=== PATIENT | female | born 1960 | race Caucasian/White ===

== ENCOUNTER → 2017-02-23 17:23 | Outpatient (CLI) | payer MEDICAID | END | disposition home or self-care (01) | LOC: D.MAMMO 16:00 | DX: Z12.31 Encounter for screening mammogram for malignant neoplasm of breast (principal) ==

== ENCOUNTER → 2018-08-14 07:28 | Outpatient (CLI) | payer MEDICAID | END | disposition home or self-care (01) | LOC: D.NM 07:28 | DX: K80.20 Calculus of gallbladder without cholecystitis without obstruction (principal) ==

== ENCOUNTER 2018-10-02 09:10 | Day surgery (SDC) | payer MEDICAID ==
[2018-10-01 15:03] LABS: BASOPHILS 0.4 % (0-2); EOSINOPHILS 1.7 % (0-7); HEMATOCRIT 38.9 % (36.0-48.0); HEMOGLOBIN 12.4 g/dL (12-16); IMMATURE GRANULOCYTES 0.4 % (0-5); LYMPHOCYTES 27.7 % (15-50); MCH 28.1 pg (26.0-34.0); MCHC 31.9 g/dL (31.0-37.0); MCV 88.2 fL (80.0-100.0); MEAN PLATELET VOLUME 9.1 fL (7.4-10.4); MONOCYTES 5.5 % (2-11); NEUTROPHILS 64.3 % (40-80); PLATELET COUNT 227 10x3/uL (130-400); RBC 4.41 10x6/uL (4.00-5.40); RDW 14.5 % (11.5-14.5); WBC 11.4 10x3/uL (4.8-10.8)
[2018-10-01 15:22] LABS: CALC OSMOLALITY 279 mosm/kg (275-300); CALCIUM 8.8 mg/dL (8.5-10.1); CHLORIDE - SERUM 100 mmol/L (98-107); CREATININE - SERUM 0.8 mg/dL (0.6-1.3); SODIUM 139 mmol/L (136-145); UREA NITROGEN 14 mg/dL (7-18); eGFR NON AFRICAN AMERICAN 78 mL/min (90-120)
[2018-10-01 15:23] LABS: GLUCOSE 122 mg/dL (74-106)
[~2018-10-02] VITALS: Ht 170.2 cm; Wt 136.5 kg
--- NOTE | ~2018-10-02 | OP ---
PATIENT NAME: CAIO BURNS MEDICAL RECORD: [id number] :64 LOCATION:D.OPS ADMISSION DATE: SURGEON: EDDIE TREJO MD DATE OF OPERATION: 10/02/2018 PREOPERATIVE DIAGNOSES: 1. Biliary dyskinesia. 2. Hypertension. 3. Diabetes mellitus. 4. Morbid obesity with a BMI of 47. POSTOPERATIVE DIAGNOSES: 1. Biliary dyskinesia. 2. Hypertension. 3. Diabetes mellitus. 4. Morbid obesity with a BMI of 47. PROCEDURE: Laparoscopic cholecystectomy. SURGEON: Eddie Trejo MD SHREDDER TENDER: Beth Bui APRN REPORT OF PROCEDURE: The patient's abdomen was prepped and draped in sterile fashion. A cutdown was made in the midline above the umbilicus. Electrocautery was used to dissect through the subcutaneous tissues, 0 Vicryls were placed on the fascia bilaterally and the fascia was incised with 15-blade. I then bluntly entered the peritoneal cavity and placed a 12-mm Lonnie port. Under direct visualization, a 5-mm trocar was placed in the epigastrium and 2 more 5-mm trocars were placed in the right subcostal region. The gallbladder was grasped and elevated. The cystic artery and cystic duct were dissected free. These were clipped proximally and distally and ligated in standard fashion. There was some bleeding from the arterial structure and multiple clips were placed. We were finally able to stop any further bleeding. At this point, the gallbladder was taken off the liver bed using electrocautery and placed in the right upper quadrant. Any bleeding from the liver bed was then treated with electrocautery. We irrigated out the right upper quadrant and assured there was no sign of any bleeding or bile leakage. At this point, the ports and insufflation were then removed and the gallbladder was taken out through the umbilicus. The umbilical fascia was closed with interrupted 0 Vicryls times 3. The wounds were irrigated out with normal saline, infused with 10 mL of 0.25% Marcaine with epinephrine. The skin incisions were all closed with subcutaneous 5-0 Monocryl and dressed appropriately. COMPLICATIONS: None. CONDITION: Stable. ANESTHESIA: General endotracheal and local. BLOOD LOSS: Minimal. TRANSINT:[id number] Voice Confirmation ID: [id number] DOCUMENT ID: [id number] OPERATIVE REPORT [id number] CATHYMINERVACAIO Peraza EDDIE AYOUB MD CC: TUTU RAMIREZ DO [id number] DICTATION DATE: 10/02/18 1149 [employer] TECHNICIAN: 10/02/18 1305 [facility] [address] [id number]
[~2018-10-02 09:10] MED LIST: COZAAR25 MG PO; GLUCOPHAGE1000 MG PO; NEURONTIN 300300 MG PO; RANITIDINE HCL150 M1 PO
[2018-10-02 10:09] VITALS: BP 111/63; Ht 170.2 cm; Wt 136.5 kg
[2018-10-02] MEDS ORDERED: DILAUDID2 MG PO (11:38)
--- NOTE | 2018-10-02 15:00 | NUR ---
PT ABLE TO VOID AT THIS TIME.
--- NOTE | 2018-10-02 15:10 | NUR ---
1322 DILAUDID 2MG PO FOR PAIN. RANKS PAIN 12/17. Yovani TELLO R.N.
--- NOTE | 2018-10-02 15:15 | NUR ---
1429 REPORT TO Timmy RAYA R.N.. Yovani TELLO R.N. 1440 STATES PAIN IS NOW 3/10. ASSISTED TO RIGHT SIDE. INSTRUCTED IN USING PILLOW TO SPLINT. O2 DC'ED @ THIS TIME. Yovani TELLO R.N.
--- NOTE | 2018-10-02 16:06 | NUR ---
PT IV DC AT THIS TIME, INTACT, NO REDNESS OR SWELLING NOTED AT SITE. PT DC INSTRUCTIONS REVIEWED AT THIS TIME, PT VERBALIZES UNDERSTANDING. NAD NOTED.
--- NOTE | 2018-10-02 16:09 | NUR ---
PT LEAVING OPS AT THIS, NAD NOTED.
== END 2018-10-02 16:09 | disposition home or self-care (01) ==
LOC: D.OPS 09:10 → D.PAN 11:30 → D.OPS 16:09
PROVIDERS: ATTEND Surgery
DX: K80.20 Calculus of gallbladder without cholecystitis without obstruction (principal); I10 Essential (primary) hypertension; E11.9 Type 2 diabetes mellitus without complications; E66.01 Morbid (severe) obesity due to excess calories; Z68.42 Body mass index [BMI] 45.0-49.9, adult; Z01.812 Encounter for preprocedural laboratory examination

== ENCOUNTER 2019-06-18 05:00 | Day surgery (SDC) | payer MEDICAID ==
[2019-06-17 11:50] LABS: BASOPHILS 0.5 % (0-2); EOSINOPHILS 1.6 % (0-7); HEMATOCRIT 37.1 % (36.0-48.0); HEMOGLOBIN 12.1 g/dL (12-16); IMMATURE GRANULOCYTES 0.3 % (0-5); LYMPHOCYTES 31.1 % (15-50); MCH 28.5 pg (26.0-34.0); MCHC 32.6 g/dL (31.0-37.0); MCV 87.3 fL (80.0-100.0); MONOCYTES 6.5 % (2-11); PLATELET COUNT 247 10x3/uL (130-400); RBC 4.25 10x6/uL (4.00-5.40); RDW 14.5 % (11.5-14.5); WBC 8.9 10x3/uL (4.8-10.8)
[2019-06-17 12:02] LABS: CALC OSMOLALITY 281 mosm/kg (275-300); CALCIUM 9.2 mg/dL (8.5-10.1); CARBON DIOXIDE 26.3 mmol/L (21.0-32.0); CHLORIDE - SERUM 102 mmol/L (98-107); CREATININE - SERUM 0.8 mg/dL (0.6-1.3); GLUCOSE 189 mg/dL (74-106); POTASSIUM - SERUM 4.2 mmol/L (3.5-5.1); SODIUM 138 mmol/L (136-145); UREA NITROGEN 14 mg/dL (7-18); eGFR NON AFRICAN AMERICAN 78 mL/min (90-120)
[~2019-06-18] VITALS: Ht 167.6 cm; Wt 131.5 kg
[~2019-06-18 05:00] MED LIST changes: +ALDACTONE25 MG PO; +DILAUDID2 MG PO; +FISH OIL 1,0001 CA1 PO; -GLUCOPHAGE1000 MG PO; +GLUCOPHAGE500 MG PO; +MAGNESIUM OXID250 MG PO; +MELATONIN5 MG PO
[2019-06-18 06:28] VITALS: BP 149/66; Ht 167.6 cm; Wt 131.5 kg
--- NOTE | 2019-06-18 08:40 | NUR ---
PATIENT NOTED HAVING A FEW SMALL RED SCABBY LESIONS ON ABDOMEN, TWORLEY
[2019-06-18] MEDS ORDERED: HYDROCODON-ACE1 EA10 PO (08:55)
--- NOTE | 2019-06-18 09:15 | NUR ---
REMOVED OPA FROM MOUTH. RR NONLABORED WITH SIMPLE MASK STILL IN PLACE.
--- NOTE | 2019-06-18 10:55 | NUR ---
1037 1 NORCO 10/325MG PO FOR COMPLAINTS OF PAIN. ORAL INTAKE OF SOUP & ICE CREAM. RANKS PAIN 7/10 WHILE RESTING. STATES IT IS @ 9/10 WITH COUGHING. O2 SAT @ 97% WHILE UPRIGHT. ASSISTED BACK IN RECUMBENT POSITION. CALL IGHT IN REACH. Yvoani TELLO R.N.
--- NOTE | 2019-06-18 13:20 | NUR ---
1215 DRESSED.GIVEN DISCHARGE INFORMATION INCLUDING: RX: NORCO 10/325MG, MED REC, RTC APPT., [facility] D/C INSTRUCTIONS & ABDOMINAL HERNIA REPAIR D/C INSTRUCTIONS. PT VOICED UNDERSTANDING. TO TAXI PER WHEELCHAIR BY VOLUNTEER. HOME VIA TAXI. Yovani TELLO R.N.
--- NOTE | 2019-06-18 13:36 | OP ---
PATIENT NAME: CAIO BURNS MEDICAL RECORD: [id number] :64 LOCATION:D.OPS ADMISSION DATE: SURGEON: ALEJA TREJO MD DATE OF OPERATION: 06/18/2019 PREOPERATIVE DIAGNOSES: 1. Ventral incisional hernia. 2. Hypertension. 3. Diabetes mellitus. 4. Morbid obesity with a BMI of 47. POSTOPERATIVE DIAGNOSES: 1. Ventral incisional hernia. 2. Hypertension. 3. Diabetes mellitus. 4. Morbid obesity with a BMI of 47. PROCEDURE: Ventral hernia repair with [address] mesh. SURGEON: Aleja Trejo MD REPORT OF PROCEDURE: The patient's abdomen was prepped and draped in sterile fashion. A midline incision was made overlying the hernia defect just above the umbilicus. Electrocautery was used to dissect through the subcutaneous tissues and we encountered the hernia sac. We dissected the tissue off of the hernia sac. I was able to dissect the hernia sac free to the point where we could see there were no contents currently within it. The hernia sac was then opened up using electrocautery and we penetrated the abdominal cavity. Once inside, we could see the fascial edges and the hernia sac was taken down to these fascial edges using electrocautery. Care was taken to assure there was no sign of any bleeding. There were no adhesions present to the anterior abdominal wall. We then freed up the fascia anteriorly by undermining the fatty tissue present over top of it. The hernia defect was 4 x 3.5 cm in size. An [address] mesh was then inserted in an underlay fashion and sutured down on all 4 sides using interrupted 0 Prolenes. We then closed the fascia over top of the mesh in a running fashion using an 0 Vicryl. This fascia was closed transversely over top of the mesh. We then irrigated out the wound with normal saline and assured there was no sign of any bleeding. The subcutaneous tissues were reapproximated and the subcutaneous tissues were reapproximated with interrupted 3-0 Vicryls and the skin was closed with running subcutaneous 5-0 Monocryl. A total of 10 mL of 0.25% Marcaine with epinephrine was infused into the surrounding tissues and the wound was dressed appropriately. COMPLICATIONS: None. CONDITION: Stable. ANESTHESIA: General endotracheal and local. BLOOD LOSS: Minimal. TRANSINT:[id number] Voice Confirmation ID: [id number] DOCUMENT ID: [id number] OPERATIVE REPORT [id number] CAIO BURNS CHRISTIAN MD at 1336 CC: TUTU RAMIREZ DO [id number] DICTATION DATE: 06/18/19 0904 CASH CLERK: 06/18/19 1017 [facility] 06/18/19 [facility] [address] [id number]
== END 2019-06-18 12:15 | disposition home or self-care (01) ==
LOC: D.OPS 05:00 → D.PAN 07:30 → D.OPS 07:30
PROVIDERS: ATTEND Surgery
DX: K43.2 Incisional hernia without obstruction or gangrene (principal); I10 Essential (primary) hypertension; E11.9 Type 2 diabetes mellitus without complications; Z79.84 Long term (current) use of oral hypoglycemic drugs; E66.01 Morbid (severe) obesity due to excess calories; Z68.42 Body mass index [BMI] 45.0-49.9, adult; I25.10 Atherosclerotic heart disease of native coronary artery without angina pectoris

== ENCOUNTER 2019-06-23 16:55 | Emergency (ER) | payer MEDICAID ==
[~2019-06-23 16:55] MED LIST changes: +HYDROCODON-ACE1 EA10 PO
[2019-06-23 17:09] VITALS: Ht 167.6 cm
[2019-06-23] MEDS ORDERED: DULCOLAX STOOL100 MG PO (22:39)
[2019-06-23] MEDS ORDERED: MIRALAX17 GM PO (22:39)
[2019-06-23 23:22] VITALS: BP 135/81
== END 2019-06-23 23:23 | disposition home or self-care (01) ==
LOC: D.ER 16:55
DX: K59.03 Drug induced constipation (principal); T40.2X5A Adverse effect of other opioids, initial encounter; I10 Essential (primary) hypertension; E11.9 Type 2 diabetes mellitus without complications; Z79.84 Long term (current) use of oral hypoglycemic drugs

== ENCOUNTER → 2020-09-17 09:49 | Outpatient (CLI) | payer MEDICAID ==
[2019-06-23 17:09] VITALS: BMI 46.9
[~2020-09-17 09:49] MED LIST changes: +DULCOLAX STOOL100 MG PO; +MIRALAX17 GM PO
== END | disposition home or self-care (01) ==
LOC: D.HCCECHO 09:49
PROVIDERS: ATTEND Internal Medicine Cardiovascular Disease
DX: I25.10 Atherosclerotic heart disease of native coronary artery without angina pectoris (principal)

== ENCOUNTER 2020-12-11 16:00 | Outpatient (CLI) | payer BC ==
[2019-06-23 17:09] VITALS: BMI 46.9
== END 2020-12-11 23:59 | disposition home or self-care (01) ==
LOC: D.MAMMO 16:00
PROVIDERS: ATTEND Family Medicine
DX: Z12.31 Encounter for screening mammogram for malignant neoplasm of breast (principal)